=== PATIENT | female | born 1985 ===

== ENCOUNTER 2024-06-11 09:35 | Day surgery (SDC) | payer OTHER ==
[2024-06-02 10:10] VITALS: BP 111/76
[2024-06-02 10:42] LABS: HEMATOCRIT 41.2 % (36.0-45.00); HEMOGLOBIN 14.2 g/dL (12.0-15.00); MEAN CELL VOLUME 86.4 fL (80.00-100.00); MEAN CORPUSCULAR HEMOGLOBIN 29.7 pg (27.00-32.0); MEAN CORPUSCULAR HGB CONC 34.4 g/dl (32.0-36.0); PLATELET COUNT 258 K/uL (150-450); RED BLOOD COUNT 4.77 M/uL (4.00-6.00); RED CELL DISTRIBUTION WIDTH 14.4 % (11.5-14.5)
[2024-06-02 10:49] LABS: PH,URINE 5.5 (5.0-8.0); URINE APPEARANCE Clear; URINE BILIRRUBIN Negative (NEGATIVE); URINE BLOOD Negative; URINE COLOR Yellow; URINE GLUCOSE Negative (NEGATIVE); URINE KETONE Negative (NEGATIVE); URINE LEUKOCYTE Negative; URINE NITRATE Negative; URINE PROTEIN Negative (NEGATIVE); URINE UROBILINOGEN 0.2 E.U./dl
[2024-06-02 10:54] LABS: URINE BACTERIA 206.8 uL (0.0-1933); URINE EPITHELIAL CELLS 16.1 uL (0.0-38.8); URINE RBC 8.1 uL (0.0-20.8); URINE WBC 22.3 uL (0.0-23.2)
[2024-06-02 11:01] LABS: INR 0.94; PROTHROMBIN TIME 10.3 SECONDS (9.0-11.5)
[2024-06-02 11:05] LABS: URINE CAST 0.58 uL (0.0-1.40)
[2024-06-02 12:10] LABS: ALBUMIN 3.7 gm/dL (3.4-5.0); BILIRUBIN TOTAL 0.63 mg/dL (0.3-1.2); CALCIUM 9.1 mg/dL (8.5-10.1); CREATININE SERUM 0.8 mg/dL (0.55-1.02); GFR 80.27; GLOBULINA 3.4 G/DL (2.4-3.5); POTASSIUM 4.48 mEq/L (3.5-5.1); TOTAL PROTEIN 7.1 gm/dL (6.4-8.2); TSH 2.18 uIU/mL (0.358-3.74)
[~2024-06-11] VITALS: Ht 157.5 cm; Wt 83.0 kg
[~2024-06-11 09:35] MED LIST: ZYRTEC10 M3 PO
[2024-06-11] MEDS ORDERED: CLINDAMYCIN PHOSPHATE 150 MG/ML (900mg) IV ONE (14:30)
[2024-06-11] MEDS ORDERED: POVIDONE-IODINE 118 ML BOTT TOP ONE (14:30)
[2024-06-11] MEDS ORDERED: NAPR500T14 PO (16:57)
[2024-06-11] MEDS ORDERED: FLAGYL375 MG PO (16:57)
[2024-06-11] MEDS ORDERED: MORPHINE SULFATE 4 MG/ML VIAL IV PRN (17:00)
[2024-06-11] MEDS ORDERED: PROMETHAZINE HCL 50 MG/ML AMPUL IM ONE (17:00)
== END 2024-06-11 21:05 | disposition home or self-care (01) ==
LOC: CIR.AMB 09:35
PROVIDERS: ATTEND Obstetrics & Gynecology
DX: D25.0 Submucous leiomyoma of uterus (principal); N84.0 Polyp of corpus uteri; N92.5 Other specified irregular menstruation; I10 Essential (primary) hypertension; Z88.1 Allergy status to other antibiotic agents; Z88.0 Allergy status to penicillin; Z88.2 Allergy status to sulfonamides